=== PATIENT | male | born 1960 ===

== ENCOUNTER 2017-06-24 10:27 | Emergency (ER) | payer BC, OTHER ==
[2017-06-24 11:49] VITALS: RESP 18
--- NOTE | 2017-06-24 11:49 | ED PDOC ---
Arrival/HPI - General Time Seen by Provider: 06/24/17 11:46 Historian: Patient - History of Present Illness Narrative History of Present Illness (Text): 06/24/17 11:47 Eric Castano is a 57 year old male, whose past medical history includes kidney stones, who presents to the Emergency department complaining of sudden onset of left-sided testicle pain radiating to his left groin and flank after waking up at 05:00 this morning. Patient notes pain is constant, 6/10, and has worsened throughout the day. Patient denies any relieving factors. Patient also denies any testicular swelling, testicular erythema, urinary symptoms, abdominal pain, nausea, vomiting, diarrhea, fever, chills, or any other complaints. Time/Duration: 4-6 hours (05:00 today) Symptom Onset: Sudden Symptom Course: Worsening Activities at Onset: Light Context: Home Past Medical History - Provider Review Nursing Documentation Reviewed: Yes Family/Social History - Physician Review Nursing Documentation Reviewed: Yes Family/Social History: Unknown Family HX Allergies/Home Meds Allergies/Adverse Reactions: Allergies No Known Allergies Allergy (Verified 06/24/17 11:49) Review of Systems - Physician Review All systems were reviewed & negative as marked: Yes - Review of Systems Constitutional: Normal. absent: Fevers Eyes: Normal ENT: Normal Respiratory: Normal. absent: SOB, Cough Cardiovascular: Normal. absent: Chest Pain Gastrointestinal: absent: Diarrhea, Nausea, Vomiting Genitourinary Male: Other (+left testicle pain). absent: Dysuria, Frequency, Hematuria, Urinary Output Changes Musculoskeletal: Back Pain Skin: Normal. absent: Rash Neurological: Normal. absent: Headache, Dizziness Endocrine: Normal Hemo/Lymphatic: Normal Psychiatric: Normal Physical Exam - Physical Exam Narrative Physical Exam (Text): Head: Atraumatic. Normocephalic. Eyes: PERRL. EOMI. Conjunctivae are not pale. ENT: Mucous membranes are moist and intact. Oropharynx is clear and symmetric. Neck: Supple. Full ROM. No JVD. No lymphadenopathy. Cardiovascular: Regular rate. Regular rhythm. No murmurs, rubs, or gallops. Distal pulses are 2+ and symmetric. Pulmonary/Chest: No evidence of respiratory distress. Clear to auscultation bilaterally. No wheezing, rales or rhonchi. Abdominal: Soft and non-distended. There is no tenderness. No rebound, guarding, or rigidity. No organomegaly. Good bowel sounds. No inguinal masses palpated. Genitourinary: No testicular masses, no testicular erythema, no testicular edema. No masses palpated. No penile discharge. Back: No CVA tenderness. Extremities: No edema. No cyanosis. No clubbing. Full range of motion in all extremities. No calf tenderness. Skin: Skin is warm and dry. No petechiae. No purpura. Neurological: Alert, awake, and oriented to person, place, time, and situation. Normal speech. Positive cremasteric reflex. Psychiatric: Good eye contact. Normal interaction, affect, and behavior. Vital Signs Reviewed: Yes Vital Signs Temp Pulse Resp BP Pulse Ox 06/24/17 14:13 78 18 132/80 98 06/24/17 11:51 98.0 F 68 18 118/77 96 06/24/17 11:20 98 F 68 18 118/77 98 Temperature: Afebrile Blood Pressure: Normal Pulse: Regular Respiratory Rate: Normal Appearance: Positive for: Well-Appearing, Non-Toxic, Comfortable Pain Distress: None Mental Status: Positive for: Alert and Oriented X 3 Medical Decision Making ED Course and Treatment: 06/24/17 11:47 Impression: 57 year old male complaining of left testicular pain radiating to left flank/ groin since 05:00 today. Differential Diagnosis included but are not limited to: renal colic vs. epididymitis vs. hernia Plan: -- CT Abdomen and Pelvis w/o contrast -- Labs -- Urinalysis -- IV fluids -- Toradol -- Reassess and disposition Progress Notes: 06/24/17 12:30 CT Abdomen and Pelvis Findings: LOWER THORAX: Unremarkable. LIVER: Unremarkable. No gross lesion or ductal dilatation. GALLBLADDER AND BILE DUCTS: Unremarkable. PANCREAS: Unremarkable. No gross lesion or ductal dilatation. SPLEEN: Unremarkable. ADRENALS: Unremarkable. No mass. KIDNEYS AND URETERS: There is a 3 mm stone in the left proximal ureter. There is mild perinephric stranding. There is no significant hydronephrosis. The findings are seen on axial image 99 series 3 and coronal image 71 VASCULATURE: Unremarkable. No aortic aneurysm. BOWEL: Unremarkable. No obstruction. No gross mural thickening. APPENDIX: Unremarkable. Normal appendix. PERITONEUM: Unremarkable. No free fluid. No free air. LYMPH NODES: Unremarkable. No enlarged lymph nodes. BLADDER: Unremarkable. REPRODUCTIVE: Unremarkable. BONES: No acute fracture. OTHER FINDINGS: None. IMPRESSION: There is a 3 mm stone in the left proximal ureter. There is mild perinephric stranding. There is no significant hydronephrosis. 06/24/17 13:46 On re-assessment, pt states pain has improved to 3/10. Pt is able to urinate, denies any nausea. Will d/c on Percocet and Flomax, risk and side effects of medication discussed with pt. Advised to f/u with urology. CT findings reviewed with patient and family in laymens' terms. Advised NO working while taking Percocet. Stressed need for re-evaluation for any worsening or new symptoms. 06/24/17 22:19 - Lab Interpretations Lab Results: 06/24/17 12:05 06/24/17 12:05 Lab Results 06/24/17 12:33: Urine Color Yellow, Urine Appearance Sl cloudy, Urine pH 5.5, Ur Specific Kelley 1.010, Urine Protein Negative, Urine Glucose (UA) >=1000, Urine Ketones 15 H, Urine Blood Small H, Urine Nitrate Negative, Urine Bilirubin Negative, Urine Urobilinogen 0.2, Ur Leukocyte Esterase Negative, Urine RBC 5 - 10, Urine WBC 0 - 2, Ur Epithelial Cells None, Urine Bacteria Few 06/24/17 12:05: Sodium 145, Potassium 4.6, Chloride 104, Carbon Dioxide 25, Anion Gap 21 H, BUN 14, Creatinine 1.0, Est GFR ( Amer) > 60, Est GFR ( Non-Af Amer) > 60, Random Glucose 131 H, Calcium 9.9, Total Bilirubin 0.8, AST 40, ALT 33, Alkaline Phosphatase 66, Total Protein 7.6, Albumin 4.5, Globulin 3.1, Albumin/Globulin Ratio 1.5 06/24/17 12:05: WBC 8.7, RBC 5.30, Hgb 14.4, Hct 42.1, MCV 79.4 L, MCH 27.2, MCHC 34.2, RDW 14.0, Plt Count 254, MPV 9.8, Gran % 78.2 H, Lymph % (Auto) 13.9 L, [place] % (Auto) 6.1 H, Eos % (Auto) 1.6, Baso % (Auto) 0.2, Gran # 6.76 H, Lymph # (Auto) 1.2, [place] # (Auto) 0.5, Eos # (Auto) 0.1, Baso # (Auto) 0.02 I have reviewed the lab results: Yes - RAD Interpretation Radiology Orders: 06/24/17 11:54 ABD & PELVIS W/O PO OR IV CONT [CT] Stat Lead Data Entry Operator: Radiologist - Medication Orders Current Medication Orders: Discontinued Medications Sodium Chloride (Sodium Chloride 0.9%) 1,000 mls @ 100 mls/hr IV .Q10H MARGUERITE Last Admin: 06/24/17 13:11 Dose: 100 mls/hr eMAR Start Stop Document 06/24/17 13:11 GMD (Rec: 06/24/17 13:11 GMD [id number]) Intravenous Solution Start Date 06/24/17 Start Time 13:11 Ketorolac Tromethamine (Toradol) 30 mg IVP ONCE ONE Stop: 06/24/17 11:55 Last Admin: 06/24/17 13:12 Dose: 30 mg MAR Pain Assessment Document 06/24/17 13:12 GMD (Rec: 06/24/17 13:12 D [id number]) Pain Reassessment Is this a pain reassessment? No IVP Administration Document 06/24/17 13:12 GMD (Rec: 06/24/17 13:12 GMD [id number]) Charges for Administration # of IVP Administrations 1 Oxycodone/Acetaminophen (Percocet 5/325 Mg Tab) 1 tab PO STAT STA Stop: 06/24/17 13:46 Last Admin: 06/24/17 14:18 Dose: 1 tab MAR Pain Assessment Document 06/24/17 14:18 GMD (Rec: 06/24/17 14:18 D [id number]) Pain Reassessment Is this a pain reassessment? No Presence of Pain Presence of Pain Yes - Scribe Statement The provider has reviewed the documentation as recorded by the Scribe Johanna Maravilla All medical record entries made by the Scribe were at my direction and personally dictated by me. I have reviewed the chart and agree that the record accurately reflects my personal performance of the history, physical exam, medical decision making, and the department course for this patient. I have also personally directed, reviewed, and agree with the discharge instructions and disposition. Disposition/Present on Arrival - Present on Arrival Any Indicators Present on Arrival: No - Disposition Have Diagnosis and Disposition been Completed?: Yes Diagnosis: Kidney stone on left side, Renal colic Disposition: HOME/ ROUTINE Disposition Time: 14:00 Patient Plan: Discharge Condition: GOOD Discharge Instructions (ExitCare): Kidney Stones (DC), Renal Colic Additional Instructions: For any return of pain, any testicle pain or swelling, any fevers, any nausea or vomiting, any difficulty urinating, any bloody urine. any chills, any persistent or worsening of symptoms, get rechecked. Follow-up with urologist as directed. Take ibuprofen or motrin as needed for pain. Take Percocet only as directed for severe pain, do not drive or operate heavy machinery while taking this medication. Prescriptions: Tamsulosin [Flomax] 0.4 mg PO DAILY #5 cap oxyCODONE/Acetaminophen [Percocet 5/325 mg Tab] 1 ea PO Q6 PRN #8 tab PRN Reason: severe pain Referrals: Neha Stevenson MD [Primary Care Provider] - Follow up with primary Helen Forrest MD [Staff Provider] - Follow up with primary Forms: WORK NOTE
[2017-06-24 11:51] VITALS: TEMP 98; BMI 38.0
[2017-06-24] MEDS ORDERED: Sodium Chloride 0.9% 1,000 ML IV SCH (12:00)
--- NOTE | 2017-06-24 12:29 | CT ---
PROCEDURE: CT Abdomen and Pelvis without intravenous contrast HISTORY: left flank pain radiating to testicle COMPARISON: None. TECHNIQUE: Without contrast.. Contrast dose: Radiation dose: Total exam DLP = 1033 mGy-cm. This CT exam was performed using one or more of the following dose reduction techniques: Automated exposure control, adjustment of the mA and/or kV according to patient size, and/or use of iterative reconstruction technique. FINDINGS: LOWER THORAX: Unremarkable. LIVER: Unremarkable. No gross lesion or ductal dilatation. GALLBLADDER AND BILE DUCTS: Unremarkable. PANCREAS: Unremarkable. No gross lesion or ductal dilatation. SPLEEN: Unremarkable. ADRENALS: Unremarkable. No mass. KIDNEYS AND URETERS: There is a 3 mm stone in the left proximal ureter. There is mild perinephric stranding. There is no significant hydronephrosis. The findings are seen on axial image 99 series 3 and coronal image 71 VASCULATURE: Unremarkable. No aortic aneurysm. BOWEL: Unremarkable. No obstruction. No gross mural thickening. APPENDIX: Unremarkable. Normal appendix. PERITONEUM: Unremarkable. No free fluid. No free air. LYMPH NODES: Unremarkable. No enlarged lymph nodes. BLADDER: Unremarkable. REPRODUCTIVE: Unremarkable. BONES: No acute fracture. OTHER FINDINGS: None. IMPRESSION: There is a 3 mm stone in the left proximal ureter. There is mild perinephric stranding. There is no significant hydronephrosis.
[2017-06-24 12:32] LABS: BASO # 0.02 K/mm3 (0.0-2.0); BASO % 0.2 % (0.0-3.0); EOS # 0.1 (0.0-0.7); EOS % 1.6 % (1.5-5.0); GRAN # 6.76 (1.4-6.5); GRAN % 78.2 % (50.0-68.0); HEMOGLOBIN 14.4 g/dL (14.0-18.0); LYMPH # 1.2 (1.2-3.4); LYMPH % 13.9 % (22.0-35.0); MEAN CELL VOLUME 79.4 fl (80.0-105.0); MEAN CORPUSCULAR HEMOGLOBIN 27.2 pg (25.0-35.0); MEAN CORPUSCULAR HGB CONC 34.2 g/dl (31.0-37.0); MEAN PLATELET VOLUME 9.8 fl (7.0-11.0); MONO # 0.5 (0.1-0.6); MONO % 6.1 % (1.0-6.0); RBC 5.3 10^6/uL (3.5-6.1); WHITE BLOOD COUNT 8.7 10^3/ul (4.5-11.0)
[2017-06-24 12:35] LABS: ALB/GLOB RATIO 1.5 (1.1-1.8); ALBUMIN 4.5 g/dL (3.0-4.8); ALT/SGPT 33 U/L (7-56); AST/SGOT 40 U/L (17-59); BLOOD UREA NITROGEN 14 mg/dL (7-21); CALCIUM 9.9 mg/dL (8.4-10.5); GFR AFRICAN-AMERICAN > 60; GFR NON-AFRICAN AMERICAN > 60
[2017-06-24 12:43] LABS: PH,URINE 5.5 (4.7-8.0); URINE BILIRUBIN NEGATIVE (NEGATIVE); URINE BLOOD SMALL (NEGATIVE); URINE GLUCOSE (UA) >=1000 mg/dL (NEGATIVE); URINE LEUKOCYTE ESTERASE NEGATIVE Leu/uL (NEGATIVE); URINE PROTEIN NEGATIVE mg/dL (<30 mg/dL); URINE UROBILINOGEN 0.2 E.U./dL (<1 E.U./dL)
[2017-06-24 12:44] LABS: URINE APPEARANCE SL CLOUDY (CLEAR); URINE COLOR YELLOW (YELLOW)
[2017-06-24 12:46] LABS: URINE BACTERIA FEW (NEG); URINE WBC 0 - 2 /hpf (0-6)
[2017-06-24] MEDS ORDERED: Oxycodone/Acetaminophen 5/325 mg Tab PO STA (13:45)
[2017-06-24 14:14] VITALS: BP 132/80; PULSE 78; O2SAT 98
== END 2017-06-24 14:21 | disposition home or self-care (01) ==
LOC: ED 10:27
DX: N20.0 Calculus of kidney (principal)
CPT/HCPCS: 74176; 80053; 81001; 85025; 96374; 99284; J1885; J7040

== ENCOUNTER 2017-06-26 09:59 | Inpatient (IN) | payer BC ==
[2017-06-26 10:00] VITALS: BMI 38.0
[2017-06-26] MEDS ORDERED: Sodium Chloride 0.9% 1,000 ML IV STA (10:32)
--- NOTE | 2017-06-26 10:32 | ED PDOC ---
Arrival/HPI - General Chief Complaint: Abdominal Pain Time Seen by Provider: 06/26/17 10:17 Historian: Patient - History of Present Illness Narrative History of Present Illness (Text): 06/26/17 10:28 57 y/o male, pmh including htn/hyperlipidemia, nkda, c/o lt. sided flank pain persist with not much improvement with percocet/flomax at home. Pt. stated that he was seen here about 2 days ago for lt. renal obstructing 3mm proximal ureter which he was discharge home after he felt better, pain has worsen for over the past 2 days which the pain is 7/10 with mild nausea when pain is severe , no fever or chills but not much appetize due to the pain, no night sweat, no rash, no numbness or tingling, no palpitation, no radiating pain, no testicular pain, no other medical or psychological complaints. Past Medical History - Provider Review Nursing Documentation Reviewed: Yes - Infectious Disease Hx of Infectious Diseases: None - Cardiac Hx Cardiac Disorders: No - Renal Hx Renal Disorder: No - Endocrine/Metabolic Hx Diabetes Mellitus Type 2: Yes - Musculoskeletal/Rheumatological Hx Musculoskeletal Disorders: No - Genitourinary/Gynecological Hx Genitourinary Disorders: No - Psychiatric Hx Substance Use: No - Anesthesia Hx Anesthesia Reactions: No Family/Social History - Physician Review Nursing Documentation Reviewed: Yes Family/Social History: Unknown Family HX Smoking Status: Unknown If Ever Smoked Hx Alcohol Use: No Hx Substance Use: No Allergies/Home Meds Allergies/Adverse Reactions: Allergies No Known Allergies Allergy (Verified 06/26/17 10:20) Home Medications: Home Meds Medication Instructions Recorded Confirmed Atorvastatin [Lipitor] 40 mg PO DAILY 06/26/17 06/26/17 Empagliflozin/Metformin HCl 1 each PO DAILY 06/26/17 06/26/17 [Synjardy 12.5-1,000 mg Tablet] Fenofibrate [Tricor] 145 mg PO DAILY 06/26/17 06/26/17 Losartan Potassium 0 mg PO DAILY 06/26/17 06/26/17 Review of Systems - Review of Systems Constitutional: absent: Fatigue, Fevers Eyes: absent: Vision Changes ENT: absent: Hearing Changes Respiratory: absent: SOB, Cough Cardiovascular: absent: Chest Pain Gastrointestinal: Abdominal Pain, Nausea. absent: Constipation, Diarrhea, Vomiting Musculoskeletal: absent: Arthralgias, Back Pain Skin: absent: Rash, Pruritis Neurological: absent: Headache, Dizziness Physical Exam Vital Signs Reviewed: Yes Vital Signs Temp Pulse Resp BP Pulse Ox 06/26/17 10:13 98.1 F 81 18 113/79 96 Temperature: Afebrile Blood Pressure: Normal Pulse: Regular Respiratory Rate: Normal Appearance: Positive for: Well-Appearing, Non-Toxic Pain Distress: Severe Mental Status: Positive for: Alert and Oriented X 3 - Systems Exam Head: Present: Atraumatic, Normocephalic Pupils: Present: PERRL Extroacular Muscles: Present: EOMI Conjunctiva: Present: Normal Mouth: Present: Moist Mucous Membranes Neck: Present: Normal Range of Motion Respiratory/Chest: Present: Clear to Auscultation, Good Air Exchange. No: Respiratory Distress, Accessory Muscle Use Cardiovascular: Present: Regular Rate and Rhythm, Normal S1, S2. No: Murmurs Abdomen: Present: Tenderness (+lt. cva tenderness). No: Distention, Peritoneal Signs, Rebound, Guarding Back: Present: Normal Inspection Upper Extremity: Present: Normal Inspection. No: Cyanosis, Edema Lower Extremity: Present: Normal Inspection. No: Edema Neurological: Present: GCS=15, CN II-XII Intact, Speech Normal Skin: Present: Warm, Dry, Normal Color. No: Rashes Psychiatric: Present: Alert, Oriented x 3, Normal Insight, Normal Concentration Medical Decision Making ED Course and Treatment: 06/26/17 10:37 -labs/ua -CT abdomen and pelvis -IVF/zofran/toradol -Observe and reassess 06/26/17 11:44 -Labs are non-significant -UA is pending but he would need ureter stent? -CT abdomen and pelvis show Stable position of a 3 millimeter calculus in the mid left hydronephrosis and slight increase in perinephric fat infiltration. -I discussed with DR. Villarreal which she covers Dr. Neha Stevenson case, discussed about the case/labs/radiology study and would admit to her service with Dr. Banda on the routine consult. Pt's pain on well controlled now, rocephine ordered for prophylatic coverage due to the possible surgical stent procedure and perinephrinic changes with hydro. -I discussed the case with Dr. Peguero, he agreed on the treatment and admission plan which he will put in the admission. 06/26/17 14:17 -UA show no UTI - Lab Interpretations Lab Results: 06/26/17 10:39 06/26/17 10:39 Lab Results 06/26/17 10:39: WBC 7.9, RBC 4.94, Hgb 13.1 L, Hct 39.2 L, MCV 79.4 L, MCH 26.5 , MCHC 33.4, RDW 13.9, Plt Count 223, MPV 9.7, Gran % 74.3 H, Lymph % (Auto) 15.9 L, [place] % (Auto) 7.4 H, Eos % (Auto) 2.0, Baso % (Auto) 0.4, Gran # 5.86, Lymph # (Auto) 1.3, [place] # (Auto) 0.6, Eos # (Auto) 0.2, Baso # (Auto) 0.03 06/26/17 10:39: Sodium 143, Potassium 4.3, Chloride 108 H, Carbon Dioxide 24, Anion Gap 16, BUN 21, Creatinine 1.3, Est GFR ( Amer) > 60, Est GFR (Non- Af Amer) 57, Random Glucose 134 H, Calcium 9.0, Magnesium 1.9, Total Bilirubin 0.6, AST 22, ALT 35, Alkaline Phosphatase 58, Total Protein 7.1, Albumin 4.1, Globulin 3.0, Albumin/Globulin Ratio 1.4, Lipase 41 - RAD Interpretation Radiology Orders: 06/26/17 10:32 ABD & PELVIS W/O PO OR IV CONT [CT] Stat PROCEDURE: CT Abdomen and Pelvis without intravenous contrast HISTORY: worsening lt. obstructing 3mm stone, new stones? COMPARISON: 06/24/2017 TECHNIQUE: Technique. Contrast dose: Radiation dose: Total exam DLP = 1033 mGy-cm. This CT exam was performed using one or more of the following dose reduction techniques: Automated exposure control, adjustment of the mA and/or kV according to patient size, and/or use of iterative reconstruction technique. FINDINGS: LOWER THORAX: Unremarkable. LIVER: Unremarkable. No gross lesion or ductal dilatation. GALLBLADDER AND BILE DUCTS: Unremarkable. PANCREAS: Unremarkable. No gross lesion or ductal dilatation. SPLEEN: Unremarkable. ADRENALS: Unremarkable. No mass. KIDNEYS AND URETERS: Stable position of a 3 millimeter calculus in the mid left hydronephrosis and slight increase in perinephric fat infiltration. VASCULATURE: Unremarkable. No aortic aneurysm. BOWEL: Unremarkable. No obstruction. No gross mural thickening. APPENDIX: Unremarkable. Normal appendix. PERITONEUM: Unremarkable. No free fluid. No free air. LYMPH NODES: Unremarkable. No enlarged lymph nodes. BLADDER: Unremarkable. REPRODUCTIVE: Unremarkable. BONES: No acute fracture. OTHER FINDINGS: None. IMPRESSION: Stable position of a 3 millimeter calculus in the mid left hydronephrosis and slight increase in perinephric fat infiltration. Service Member: Radiologist - Medication Orders Current Medication Orders: Discontinued Medications Sodium Chloride (Sodium Chloride 0.9%) 1,000 mls @ 999 mls/hr IV .Q1H1M STA Stop: 06/26/17 11:32 Last Admin: 06/26/17 10:39 Dose: 999 mls/hr eMAR Start Stop Document 06/26/17 10:39 EW (Rec: 06/26/17 10:39 [id number]) Intravenous Solution Start Date 06/26/17 Start Time 10:39 End Date 06/26/17 End time 11:39 Total Infusion Time 60 Ceftriaxone Sodium (Rocephin 1 Gram Ivpb) 1 gm in 100 mls @ 200 mls/hr IVPB STAT STA PRN Reason: Protocol Stop: 06/26/17 12:14 Last Admin: 06/26/17 13:03 Dose: 200 mls/hr eMAR Start Stop Document 06/26/17 13:03 EW (Rec: 06/26/17 13:04 [id number]) Intravenous Solution Start Date 06/26/17 Start Time 13:04 End Date 06/26/17 End time 13:34 Total Infusion Time 30 Ketorolac Tromethamine (Toradol) 30 mg IVP STAT STA Stop: 06/26/17 10:33 Last Admin: 06/26/17 10:37 Dose: 30 mg MAR Pain Assessment Document 06/26/17 10:37 [facility] (Rec: 06/26/17 10:37 [facility] [id number]) Pain Reassessment Is this a pain reassessment? No Sleep Is patient sleeping during reassessment? Yes Pain Scale Used Pain Scale Used Numeric Location Left, Right or Bilateral Left Pain Location Body Site Back Description Description Constant Intensity of Pain at present 8 IVP Administration Document 06/26/17 10:37 EWO (Rec: 06/26/17 10:37 [id number] Charges for Administration # of IVP Administrations 1 Ondansetron HCl (Zofran Inj) 4 mg IVP STAT STA Stop: 06/26/17 10:36 Last Admin: 06/26/17 10:58 Dose: 4 mg IVP Administration Document 06/26/17 10:58 EWO (Rec: 06/26/17 10:58 [id number] Charges for Administration # of IVP Administrations 1 Tamsulosin HCl (Flomax) 0.4 mg PO STAT STA Stop: 06/26/17 10:33 Last Admin: 06/26/17 10:37 Dose: 0.4 mg - PA / EARLY CHILDHOOD EDUCATION SPECIALIST / Resident Statement / has reviewed & agrees with the documentation as recorded. Disposition/Present on Arrival - Present on Arrival Any Indicators Present on Arrival: No History of DVT/PE: No History of Uncontrolled Diabetes: No Urinary Catheter: No History of Decub. Ulcer: No History Surgical Site Infection Following: None - Disposition Have Diagnosis and Disposition been Completed?: Yes Diagnosis: Failure of outpatient treatment, Hydronephrosis, Ureterolithiasis Disposition: HOSPITALIZED Disposition Time: 10:37 Patient Plan: Admission Patient Problems: Current Active Problems Problem Status Onset Failure of outpatient treatment Acute Hydronephrosis Acute Ureterolithiasis Acute Condition: STABLE
[2017-06-26 10:49] LABS: BASO # 0.03 K/mm3 (0.0-2.0); BASO % 0.4 % (0.0-3.0); EOS # 0.2 (0.0-0.7); GRAN # 5.86 (1.4-6.5); GRAN % 74.3 % (50.0-68.0); HEMOGLOBIN 13.1 g/dL (14.0-18.0); LYMPH # 1.3 (1.2-3.4); LYMPH % 15.9 % (22.0-35.0); MEAN CELL VOLUME 79.4 fl (80.0-105.0); MEAN CORPUSCULAR HEMOGLOBIN 26.5 pg (25.0-35.0); MEAN CORPUSCULAR HGB CONC 33.4 g/dl (31.0-37.0); MEAN PLATELET VOLUME 9.7 fl (7.0-11.0); MONO # 0.6 (0.1-0.6); MONO % 7.4 % (1.0-6.0); RBC 4.94 10^6/uL (3.5-6.1); RED CELL DISTRIBUTION WIDTH 13.9 % (11.5-14.5); WHITE BLOOD COUNT 7.9 10^3/ul (4.5-11.0)
[2017-06-26 10:54] LABS: ALB/GLOB RATIO 1.4 (1.1-1.8); ALBUMIN 4.1 g/dL (3.0-4.8); ALT/SGPT 35 U/L (7-56); AST/SGOT 22 U/L (17-59); BLOOD UREA NITROGEN 21 mg/dL (7-21); GFR AFRICAN-AMERICAN > 60; GFR NON-AFRICAN AMERICAN 57; LIPASE 41 U/L (23-300)
--- NOTE | 2017-06-26 11:29 | CT ---
PROCEDURE: CT Abdomen and Pelvis without intravenous contrast HISTORY: worsening lt. obstructing 3mm stone, new stones? COMPARISON: 06/24/2017 TECHNIQUE: Technique. Contrast dose: Radiation dose: Total exam DLP = 1033 mGy-cm. This CT exam was performed using one or more of the following dose reduction techniques: Automated exposure control, adjustment of the mA and/or kV according to patient size, and/or use of iterative reconstruction technique. FINDINGS: LOWER THORAX: Unremarkable. LIVER: Unremarkable. No gross lesion or ductal dilatation. GALLBLADDER AND BILE DUCTS: Unremarkable. PANCREAS: Unremarkable. No gross lesion or ductal dilatation. SPLEEN: Unremarkable. ADRENALS: Unremarkable. No mass. KIDNEYS AND URETERS: Stable position of a 3 millimeter calculus in the mid left hydronephrosis and slight increase in perinephric fat infiltration. VASCULATURE: Unremarkable. No aortic aneurysm. BOWEL: Unremarkable. No obstruction. No gross mural thickening. APPENDIX: Unremarkable. Normal appendix. PERITONEUM: Unremarkable. No free fluid. No free air. LYMPH NODES: Unremarkable. No enlarged lymph nodes. BLADDER: Unremarkable. REPRODUCTIVE: Unremarkable. BONES: No acute fracture. OTHER FINDINGS: None. IMPRESSION: Stable position of a 3 millimeter calculus in the mid left hydronephrosis and slight increase in perinephric fat infiltration.
[2017-06-26] MEDS ORDERED: cefTRIAXone 1 gm 1 GM/100 ML BAG IVPB STA (11:45)
[2017-06-26 13:51] LABS: URINE BILIRUBIN NEGATIVE (NEGATIVE); URINE BLOOD NEGATIVE (NEGATIVE); URINE GLUCOSE (UA) >=1000 mg/dL (NEGATIVE); URINE LEUKOCYTE ESTERASE NEGATIVE Leu/uL (NEGATIVE); URINE PROTEIN NEGATIVE mg/dL (<30 mg/dL); URINE UROBILINOGEN 0.2 E.U./dL (<1 E.U./dL)
[2017-06-26 13:54] LABS: URINE APPEARANCE CLEAR (CLEAR); URINE COLOR YELLOW (YELLOW)
[2017-06-26] MEDS: Dextrose 5%/0.45% NS 1,000 ML IV SCH (14:48)
[2017-06-26] MEDS ORDERED: Pneumococcal 23-Valent Vaccine IM ONE (16:36)
[2017-06-26] MEDS: Insulin Lispro (humaLOG) MEDIUM Coverage SC SCH (17:17)
--- NOTE | 2017-06-26 20:34 | CON ---
DATE: 06/26/2017 consultation. CHIEF COMPLAINT: Intractable flank pain. HISTORY OF PRESENT ILLNESS: This is a 57-year-old male, who is seen in [facility]. The patient originally was in the emergency room a few days ago. He was diagnosed with renal colic and a 3 mm left mid ureteral calculus. The patient was sent home on Flomax and analgesics. He returned again with intractable pain. Repeat CT scan was done, which showed the stone was in the similar position. The patient reports the pain is moderate to severe, currently feeling better after intravenous pain medicine. He reports no nausea or vomiting. He recently ate and tolerated his diet. He reports no fever or chills. No dysuria, urinary frequency, urgency or gross hematuria. He thinks he did have a stone years ago. He does have a history of diabetes. A consultation was requested regarding the above. PAST MEDICAL HISTORY: Includes hypertension, hyperlipidemia. The patient reports diabetes, although this is not noted in the history from the ER; however, he is on Synjardy, so he apparently does have diabetes. MEDICATIONS AT HOME: Include Lipitor, Synjardy, TriCor and losartan. ALLERGIES : NO KNOWN DRUG ALLERGIES. FAMILY HISTORY: Noncontributory for this admission. SOCIAL HISTORY: Denies smoking or EtOH use. REVIEW OF SYSTEMS: Positive for left flank pain. Negative for fever. Negative for chills. Negative for nausea or vomiting. Other systems are negative. PHYSICAL EXAMINATION: GENERAL: The patient is awake and alert, answering questions. He is in no acute distress. VITAL SIGNS: He is afebrile. Temp of 98.6, pulse 79, BP 112/79, respirations 18. He has given a dose of Rocephin. NECK: Supple. There is no mass or adenopathy. CHEST: Examination of the chest revealed normal inspiratory effort. CARDIAC: Showed positive S1, S2. There is no peripheral edema. ABDOMINAL: Abdomen is obese, soft, nontender, nondistended. There is no hepatosplenomegaly. There is no current CVA tenderness. : Phallus is normal. Scrotum is normal. Testes bilaterally descended, nontender, no masses. Epididymes are normal. LABORATORY EXAM: WBC count 7.9. GFR 57 with a BUN of 21, creatinine 1.3. Urinalysis negative for blood, negative for leukocytes. On radiologic exam, the patient had a CT scan of the abdomen and pelvis, which shows a 3 mm left mid ureteral calculus with mild left hydronephrosis. IMPRESSION AND PLAN: This is a 57-year-old patient with type 2 diabetes and obstructing mid left ureteral stone. I discussed with the patient that the stone did not appear to be progressing. We can continue to follow him for now; however, I feel the patient would benefit from placement of a ureteral stent. Given his history of diabetes, I would not leave him with the obstruction for too long as he has at risk for infection. At this time, there is no evidence of infection. His white count is normal. His vital signs are stable and he is afebrile. Plan will be to keep the patient n.p.o. after midnight tonight. I will place an elective ureteral stent tomorrow and then we can plan on a stone removal. Thank you for allowing me to participate in the care of this patient. I will follow him with you. Kee Banda MD
--- NOTE | 2017-06-27 02:01 | HP ---
DATE OF SERVICE: 06/26/2017 HISTORY OF PRESENT ILLNESS: The patient is a 57-year-old white male who has been having left flank discomfort for few days, got worse. He was in the emergency room on 06/24/2017. He had a CAT scan done that shows 3 mm stone. He was given IV fluids, analgesic and Flomax, and he was sent home, but he states that his pain got worse starting from left flank going towards his left testicle. Denies any hematuria. No history of fever or chills. No history of nausea or vomiting. No history of diarrhea. Patient states he had similar episode almost 10 years ago and he ended up passing the stone, and since then, he has been asymptomatic. He does complain of losing appetite because of the pain and Percocet is not helping also, the one that was given upon his ER visit on 06/24/2017. PAST MEDICAL HISTORY: Significant for; 1. Hypertension. 2. Dnk-oyaxnnm-awlwjipgr diabetes. 3. Hyperlipidemia. PAST SURGICAL HISTORY: Only significant for rhinoplasty that he had after accident. ALLERGIES: HE HAS NO ALLERGY TO ANY MEDICATION. MEDICATION: At home, he is on Percocet as needed, Flomax 0.4 daily, losartan 50 mg daily, TriCor 145 daily, and he is on Synjardy 1000/12.5 daily, and atorvastatin up to 40 mg daily. SOCIAL HISTORY: He is , lives with his . Denies smoking, drinking or alcohol use. REVIEW OF SYSTEMS: Significant for left flank pain, and no fever or chills. PHYSICAL EXAMINATION: GENERAL: He is awake, alert, oriented, communicative. VITAL SIGNS: He is afebrile, pulse 79, respirations 18, blood pressure 112/79. LUNGS: Bilateral good airflow. No rhonchi or crackles. HEART: S1 and S2 audible. ABDOMEN: Soft, obese, nontender. No rebound. No guarding. Still some discomfort in the left lower flank area. EXTREMITIES: Bilateral legs, no edema. LABORATORY DATA: WBC 7.9, hemoglobin 13, hematocrit 39, platelet of 223. Chemistry: Sodium 143, potassium 4.3, chloride 108, CO2 of 24, BUN 21, creatinine 1.3. Blood sugar of 134. Urinalysis has no blood, no leukocyte. DIAGNOSTIC DATA: His CT scan of the abdomen and pelvis done that shows stable position of 3 mm calculus in the mid left ureter with hydronephrosis and slight increase in perinephric fat infiltration. ASSESSMENT: 1. Nephrolithiasis. 2. Renal colic. 3. Mild left hydronephrosis. 4. Hypertension. 5. Yuh-dumadhx-mkgftlkqx diabetes. 6. Hyperlipidemia. PLAN: Start patient on IV fluid. Monitor blood sugar. We will resume his usual medications. Dr. Banda has been consulted. We will reevaluate the patient in a.m. Lucrecia Villarreal MD
[2017-06-27] MEDS: Dextrose 5%/0.45% NS 1,000 ML IV SCH (04:45)
[2017-06-27] MEDS: Insulin Lispro (humaLOG) MEDIUM Coverage SC SCH ×3 (04:46→12:14)
[2017-06-27 07:48] LABS: BASO # 0.01 K/mm3 (0.0-2.0); BASO % 0.2 % (0.0-3.0); EOS # 0.2 (0.0-0.7); EOS % 2.3 % (1.5-5.0); GRAN # 4.27 (1.4-6.5); GRAN % 65.4 % (50.0-68.0); HEMOGLOBIN 12.2 g/dL (14.0-18.0); LYMPH # 1.6 (1.2-3.4); LYMPH % 25.2 % (22.0-35.0); MEAN CELL VOLUME 80.5 fl (80.0-105.0); MEAN CORPUSCULAR HEMOGLOBIN 26.4 pg (25.0-35.0); MEAN CORPUSCULAR HGB CONC 32.8 g/dl (31.0-37.0); MEAN PLATELET VOLUME 10.1 fl (7.0-11.0); MONO # 0.5 (0.1-0.6); MONO % 6.9 % (1.0-6.0); RBC 4.62 10^6/uL (3.5-6.1); RED CELL DISTRIBUTION WIDTH 14.2 % (11.5-14.5); WHITE BLOOD COUNT 6.5 10^3/ul (4.5-11.0)
[2017-06-27 07:51] LABS: ALB/GLOB RATIO 1.3 (1.1-1.8); ALT/SGPT 24 U/L (7-56); AST/SGOT 21 U/L (17-59); BLOOD UREA NITROGEN 22 mg/dL (7-21); CALCIUM 8.8 mg/dL (8.4-10.5); GFR AFRICAN-AMERICAN > 60; GFR NON-AFRICAN AMERICAN 52
[2017-06-27] MEDS ORDERED: cefTRIAXone (Rocephin) 1 gm Inj ONE (08:50)
[2017-06-27] MEDS ORDERED: Iohexol 240 (50 ml) ONE (08:50)
[2017-06-27] MEDS ORDERED: Propofol 10 mg/ml Inj (20 ML) ONE ×2 (08:54→09:52)
[2017-06-27] MEDS ORDERED: Midazolam 2 MG/2 ML VIAL ONE (08:54)
[2017-06-27] MEDS ORDERED: ePHEDrine 50 mg/ml Inj ONE (09:03)
[2017-06-27] MEDS ORDERED: HYDROmorphone 0.5 mg/0.5 ml ISec IVP PRN (09:27)
[2017-06-27] MEDS ORDERED: Sodium Chloride 0.9% 1,000 ML IV SCH (09:30)
[2017-06-27 10:11] VITALS: TEMP 97.9
[2017-06-27 10:26] VITALS: RESP 20; O2SAT 97
[2017-06-27 10:32] VITALS: PULSE 71
[2017-06-27] MEDS ORDERED: Magnesium Citrate Oral SOL (300 ml) PO STA (11:44)
[2017-06-27 12:22] VITALS: BP 110/64
--- NOTE | 2017-06-27 12:46 | OP ---
PROCEDURE DATE: 06/27/2017 PREOPERATIVE DIAGNOSIS: Left ureteral calculus. POSTOPERATIVE DIAGNOSIS: Left ureteral calculus. PROCEDURE: Cystoscopy, left retrograde pyelogram, insertion of a left ureteral stent. ATTENDING SURGEON: Kee Banda MD. ANESTHESIA: General. SPECIMENS: There were none. DRAINS: A 6 x 24 left ureteral stent. COMPLICATIONS: There were none. OPERATIVE FINDINGS: After informed consent was obtained, the patient was taken to the operating room, placed on the operating table. Anesthesia was administered. The patient was placed in the dorsal lithotomy position and prepped and draped in the usual sterile fashion. A 22-[place] cystoscope was placed in the patient's urethra and advanced proximally under direct vision until the bladder was entered. A full survey and inspection of bladder was then performed, which revealed no stones, tumors or foreign bodies of the bladder. Both ureteral orifices were visualized and appeared within normal limits. At this point, a Pollack catheter 5-[place] was introduced through the cystoscope and guided into the left ureteral orifice. A left retrograde pyelogram was then performed by instilling contrast into the left ureter during real-time fluoroscopy. There appeared to be a filling defect in the upper ureter. The ureter above this was dilated. There was mild hydronephrosis. At this point, a sensor wire was obtained. The sensor wire was passed through the Pollack catheter. It was able to be advanced without difficulty into the kidney and coiled in the upper collecting system. At this point, a 6 x 24 stent was obtained. The stent was passed over the wire through the cystoscope and into the left ureter. The stent was advanced proximally under direct and fluoroscopic guidance. When the stent was in proper position, the guidewire was removed. A coil was seen in the renal pelvis on fluoroscopy. A coil was seen in the bladder on cystoscopy. At this point, the procedure was completed, a large amount of debris was noted exiting through and around the catheter after it was placed. The bladder was drained. The cystoscope was removed. The patient tolerated the procedure well. He was returned to the supine position and taken to the recovery room awake and in stable condition. Kee Banda MD [facility] # [id number]
--- NOTE | 2017-06-28 06:17 | DS ---
HISTORY OF PRESENT ILLNESS: Patient is a 57 years old, seen in recovery, had stent placed by Dr. Banda, has left flank discomfort. No nausea, vomiting or diarrhea. PHYSICAL EXAMINATION: VITAL SIGNS: Patient is afebrile. Pulse 71, respirations 20, blood pressure 126/73. LUNGS: Bilateral fair airflow. No rhonchi or crackle. HEART: S1 and S2 audible. ABDOMEN: Soft, obese, nontender, no rebound, no guarding. NEUROLOGIC: Patient is awake, alert, oriented, communicative. LABORATORY EXAMINATION: WBC 6.5, hemoglobin 12, hematocrit 37, platelets 248. Chemistry: Sodium 146, potassium 4.3, chloride 108, CO2 26, BUN 22, creatinine 1.4, blood sugar of 129. He had 3-mm calculus in left mid ureter, had stent placed. ASSESSMENT AND PLAN: 1. Renal colic. 2. Non-insulin dependant diabetes. 3. Hypertension. 4. Morbid obesity. So plan is, we will continue patient on Cozaar. He is on IV fluids. Continue him on Flomax. He is on metformin and given Rocephin. I will order for Cipro Patient has Percocet at home. I spoke to Dr. Banda and according to him, he will be discharged today in the afternoon. Lucrecia Villarreal MD
== END 2017-06-27 15:13 | disposition home or self-care (01) | DRG 694 ==
LOC: ED 09:59 → ERH 12:18 → 5RSO 15:15
PROVIDERS: ADMIT Internal Medicine; ATTEND Internal Medicine
PROC: BT1F1ZZ Fluoroscopy of Left Kidney, Ureter and Bladder using Low Osmolar Contrast (ICD-10-PCS; 2017-06-27)
PROC: 0T778DZ Dilation of Left Ureter with Intraluminal Device, Via Natural or Artificial Opening Endoscopic (ICD-10-PCS; principal; 2017-06-27 09:00)
DX: N13.2 Hydronephrosis with renal and ureteral calculous obstruction (principal); E11.9 Type 2 diabetes mellitus without complications; E66.01 Morbid (severe) obesity due to excess calories; E78.5 Hyperlipidemia, unspecified; I10 Essential (primary) hypertension; R40.2412 Glasgow coma scale score 13-15, at arrival to emergency department